=== PATIENT | female | born 1960 | race African-American/Black ===

== ENCOUNTER 2022-05-09 15:49 | Emergency (ER) | payer OTHER ==
[~2022-05-09] VITALS: Ht 172.7 cm; Wt 82.0 kg
[~2022-05-09 15:49] MED LIST: NONE REPORTED
[2022-05-09 15:59] VITALS: BP 142/82
[2022-05-09] MEDS ORDERED: GUAI-740 MT (17:49)
[2022-05-09] MEDS ORDERED: AMOX1TAB16 MT (17:49)
== END 2022-05-09 18:12 | disposition home or self-care (01) ==
LOC: ER 15:49
DX: R05.9 Cough, unspecified (principal)
CPT/HCPCS: 99285